=== PATIENT | female | born 1935 | race Caucasian/White ===

== ENCOUNTER 2021-05-15 19:54 | Emergency (ER) | payer OTHER ==
[~2021-05-15] VITALS: Ht 162.6 cm; Wt 57.1 kg
[~2021-05-15 19:54] MED LIST: ACTONEL30 MG; ASPIRIN EC81 M1; CLONIDINE0.1; LOSARTAN-HCTZ1 EACH; VITAMIN D400 UNI1; VITAMIN E200 UNI4; VITCB500GO
[2021-05-15] MEDS ORDERED: HYDROCODON-ACE1 EAC7 PO (20:55)
[2021-05-15 21:44] VITALS: BP 142/65
== END 2021-05-15 21:45 | disposition home or self-care (01) ==
LOC: M.ERS 19:54
DX: S32.028A Other fracture of second lumbar vertebra, initial encounter for closed fracture (principal); I10 Essential (primary) hypertension; Z79.899 Other long term (current) drug therapy; Z79.82 Long term (current) use of aspirin; W19.XXXA Unspecified fall, initial encounter; Y93.89 Activity, other specified; Y92.89 Other specified places as the place of occurrence of the external cause; Y99.8 Other external cause status

== ENCOUNTER → 2021-06-11 | Outpatient (CLI) | payer OTHER ==
[~2021-06-11] MED LIST changes: +HYDROCODON-ACE1 EAC7 PO
[2021-06-11 10:31] LABS: CREATININE 1.2 mg/dL (0.6-1.3)
== END ==
LOC: M.MRI 05-24 12:34 → M.LAB 09:50 → M.CT 11:00
PROVIDERS: ATTEND Nurse Practitioner
DX: S32.009D Unspecified fracture of unspecified lumbar vertebra, subsequent encounter for fracture with routine healing (principal); S32.020K Wedge compression fracture of second lumbar vertebra, subsequent encounter for fracture with nonunion; M54.5 Low back pain; N28.9 Disorder of kidney and ureter, unspecified; B35.1 Tinea unguium; M48.061 Spinal stenosis, lumbar region without neurogenic claudication; X58.XXXD Exposure to other specified factors, subsequent encounter; Z91.81 History of falling

== ENCOUNTER 2021-06-20 16:04 | Inpatient (IN) | payer OTHER ==
[~2021-06-20] VITALS: Ht 162.6 cm; Wt 58.1 kg
--- NOTE | ~2021-06-20 | CON ---
[address] [address] CONSULTATION Name: ALBERTINA HIGH Room: [address] IN M.R.#: [id number] Admission: 06/20/21 Attend Phys: Pao Mchugh Discharge: Date of : [birth year] Report #: [id number] THIS REPORT FOR: cc: Elena Herndon Linda J. DO Khosla,Blu Aguilar MD ~ DATE OF CONSULTATION: 06/21/2021 HISTORY OF PRESENT ILLNESS: This is an 86-year-old female patient who was evaluated by me for the possibility of stroke. The patient was admitted with acute onset of left sided weakness, which looked pretty significant and the patient already made complete recovery from that. She never had this kind of symptoms before. Symptoms came spontaneously without any trauma and then resolved spontaneously. It is not clear what her blood sugar and blood pressure were at that time. REVIEW OF SYSTEMS: Indicate that this patient had an aneurysm in the past. She had clips placed in. From the CT scan, it looks like this patient had clips on the left side and rest of the history she gave and looks like she had a pretty significant encephalomalacia on the left side. She underwent a CT angiogram yesterday, it looks like and a CT angiogram showed high-grade stenosis of the left carotid artery and there was a perfusion abnormality on the right side. She was told never to have an MRI with the clips she has in. A 14-point review of system was carried out and is positive for hypertension and osteopenia, otherwise it is fairly unremarkable. She is not complaining of any eye, ENT, cardiac, respiratory, GI, , musculoskeletal, constitutional, dermatological, hematological, psychiatric, throat, allergic symptom associated with present symptomatology except as described above. PAST MEDICAL HISTORY: Positive for aneurysm with significant encephalomalacia. FAMILY HISTORY: Negative for early age stroke. SOCIAL HISTORY: She drinks one beer every day. She does not smoke. PHYSICAL EXAMINATION: She is alert, responsive, oriented, able to follow simple and complex commands. Her memory looks like her baseline. Cranial nerve examinations appear unremarkable. Her strength, sensation, reflexes and tone are symmetrical. She has a good position sense on both sides. Reflexes are symmetrical. There is no cerebellar sign. There is no carotid bruit. Cardiorespiratory examinations appear unremarkable. Blood pressure is 139/59, respirations 17, pulse is 64, temperature is 97. Her pulses are somewhat difficult to feel, but she is a thin looking lady and her vision and hearing is adequate. There is no thyroid mass. There is no carotid [place] [id number] CONSULTATION Name: ALBERTINA HIGH Room: [address] IN M.R.#: [id number] Admission: 06/20/21 Attend Phys: Pao Mchugh Discharge: Date of : [birth year] Report #: [id number] difficulty noted. LABORATORY DATA: White count is 7.1. IMPRESSION: 1. Cerebrovascular accident versus TIA. We will not be able to distinguish one from another because we will not be able to do MRI in this patient. Symptom looks profound and the patient does have a perfusion abnormality on the right side. 2. Left carotid stenosis, which is asymptomatic. 3. GFR is low and the patient had a contrast yesterday. RECOMMENDATIONS: 1. Workup for the stroke. 2. Left carotid stenosis, need to be addressed as an outpatient. 3. GFR is low. I will suggest starting the fluids. I gave her a bolus and then started her on some fluid. 4. She is also anemic, we will the evaluation and management of that to yourself. Thank you very much for this referral. Please call me if there is any question. By: [id number] Mclaughlin MD /nt
[~2021-06-20 16:04] MED LIST changes: +CLONIDINE HCL0.1 MG; -CLONIDINE0.1
[2021-06-20 16:24] VITALS: BP 91/44
[2021-06-20 16:35] LABS: ABSOLUTE BASOPHILS 0.1 thou/uL (0.0-0.2); ABSOLUTE MONOCYTES 0.7 thou/uL (0.0-1.2); ABSOLUTE NEUTROPHILS 4.3 thou/uL (1.6-8.1); EOSINOPHILS 0.5 %; HEMATOCRIT 25.6 % (37.0-47.0); HEMOGLOBIN 8.7 gm/dL (12.0-15.0); LYMPHOCYTES 27.9 %; MCH 31.7 pg (26.0-34.0); MCV 93.1 fL (80.0-100.0); MONOCYTES 9.4 %; MPV 7.7 fl. (7.2-11.1); NUCLEATED RBCS 0 /100WBC; PLATELET COUNT* 212 thou/uL (150-400); POLYS 61.2 %; RBC 2.74 mil/uL (4.20-5.00); RDW-CV 15.4 % (10.5-14.5); WBC 7.1 thou/uL (4.0-11.0)
[2021-06-20 16:44] LABS: CALCIUM 8.8 mg/dL (8.5-10.1); CREATININE 1.3 mg/dL (0.6-1.3); POTASSIUM 3.7 mmol/L (3.5-5.1)
[2021-06-20 16:49] LABS: ALBUMIN 3.5 g/dL (3.4-5.0); TOTAL BILIRUBIN 0.3 mg/dL (<0.1-1.0); TOTAL PROTEIN 6.7 g/dL (6.4-8.2)
[2021-06-20 20:25] VITALS: BP 113/54
[2021-06-20 20:45] VITALS: BP 139/49
[2021-06-20] MEDS ORDERED: PRILOSEC OTC20 MG PO (21:49)
[2021-06-20] MEDS ORDERED: AMBIEN5 MG PO (21:49)
[2021-06-21 01:38] VITALS: BP 106/47
[2021-06-21 06:48] VITALS: BP 125/47
[2021-06-21 09:36] LABS: CHOLESTEROL 112 mg/dL (<200); HDL CHOLESTEROL 51 mg/dL (>40); LDL CHOLESTEROL 47 mg/dL (<100); TC:HDL 2.2 Ratio (Not establshd); TRIGLYCERIDE 71 mg/dL (<150); VLDL 14 mg/dL (<40)
[2021-06-21 09:38] LABS: SERUM ASSESSMENT Clear
--- NOTE | 2021-06-21 10:41 | EKG ---
[place] [address] ELECTROCARDIOGRAM REPORT Name: ANILAALBERTINA SAIMA Room: [address] ADM IN ..#: [id number] Admission: 06/20/21 Attend Phys: Oskar Augustin Discharge: Date of : [birth year] Date of Service: 06/20/21 1622 Report #: [id number] THIS REPORT FOR: //name// [facility] ED Test Date: 2021-06-20 Test Time: 16:22:09 Pat Name: ALBERTINA HIGH Department: Room: [facility] Gender: F [employer]orer [employer]: KARY : 1935 Requested By: Ananda Chicas Order Number: [id number] MD: Sid Sarkar Measurements Intervals [place] Rate: 65 P: 50 DE: 188 QRS: -28 QRSD: 74 T: 30 QT: 423 QTc: 440 Interpretive Statements Sinus rhythm artifact noted Anterior infarct, old No previous ECG available for comparison Electronically Signed On 06-21-2021 10:41:08 CDT by Sid Sarkar [email or web address] <ELECTRONICALLY SIGNED> By: Sid Sarkar MD, [facility] 06/21/21 1041 1622 1622 Sid Sarkar MD, [facility] /EPI
[2021-06-21 12:00] VITALS: BP 127/58
--- NOTE | 2021-06-21 15:43 | 2DMMODE ---
[place] [address] 2 D/M-MODE ECHOCARDIOGRAM Name: ALBERTINA HIGH Room: [address] IN Roxy.#: [id number] Admission: 06/20/21 Attend Phys: Oskar Augustin Discharge: Date of : [birth year] Date of Service: 06/21/21 1543 Report #: [id number] THIS REPORT FOR: cc: Elena Herndon,Elena Diaz,Sid Chapin MD [facility] ~ APPROVED REPORT Study performed: 06/21/2021 14:08:55 EXAM: Comprehensive 2D, Doppler, and color-flow Echocardiogram Patient Location: In-Patient Room #: 201 Status: routine BSA: 1.61 HR: 86 bpm BP: 125/47 mmHg Rhythm: NSR Other Information Study Quality: Good Indications CVA/TIA Echo Enhancing Agent Indication: Rule out Shunt Agent(s) / Amount(s) Used: Agitated Saline 10 cc 2D Dimensions IVSd: 11.69 (7-11mm) LVOT Diam: 18.90 (18-24mm) LVDd: 38.32 mm PWd: 8.90 (7-11mm) Ascending Ao: 30.55 (22-36mm) LVDs: 27.80 (25-40mm) Aortic Root: 29.35 mm Volumes Left Atrial Volume (Systole) LA ESV Index: 27.80 mL/m2 Aortic Valve AoV Peak Blake.: 1.55 m/s AO Peak Gr.: 9.64 mmHg LVOT Max P.02 mmHg AO Mean Gr.: 5.04 mmHg LVOT Mean P[place]90 [place] [address] 2 D/M-MODE ECHOCARDIOGRAM Name: ALBERTINA HIGH Room: [address] IN .R.#: [id number] Admission: 06/20/21 Attend Phys: Oskar Augustin Discharge: Date of : [birth year] Date of Service: 06/21/21 1543 Report #: [id number] LVOT Max V: 1.00 m/s AO V2 VTI: 33.72 cm LVOT Mean V: 0.63 m/s ANALILIA (VTI): 1.99 cm2 LVOT V1 VTI: 23.88 cm Mitral Valve E/A Ratio: 0.75 MV Decel. Time: 296.29 ms MV E Max Blake.: 0.96 m/s MV PHT: 85.92 ms MVA (PHT): 2.56 cm2 TDI E/Lateral E': 12.00 E/Medial E': 9.60 Medial E' Blake.: 0.10 m/s Lateral E' Blake.: 0.08 m/s Pulmonary Valve PV Peak Blake.: 0.86 m/s PV Peak Gr.: 2.93 mmHg Tricuspid Valve RAP Estimate: 5.00 mmHg TR Peak Gr.: 24.22 mmHg RVSP: 29.00 mmHg PA Pressure: 29.00 mmHg Left Ventricle The left ventricle is normal size. There is normal LV segmental wall motion. There is normal left ventricular wall thickness. Left ventricular systolic function is normal. The left ventricular ejection fraction is within the normal range. LVEF is 60-65%. Grade I - abnormal relaxation pattern. Right Ventricle The right ventricle is normal size. The right ventricular systolic function is normal. Atria The left atrium size is normal. The interatrial septum is intact with no evidence for an atrial septal defect. The right atrium size is normal. Aortic Valve Mild aortic valve sclerosis. No aortic regurgitation is present. There is no aortic valvular stenosis. Mitral Valve The mitral valve is normal in structure. [place] [address] 2 D/M-MODE ECHOCARDIOGRAM Name: ALBERTINA HIGH Room: [address] IN M.R.#: [id number] Admission: 06/20/21 Attend Phys: Oskar Augustin Discharge: Date of : [birth year] Date of Service: 06/21/21 1543 Report #: [id number] regurgitation noted. No evidence of mitral valve stenosis. Tricuspid Valve The tricuspid valve is normal in structure. Trace tricuspid regurgitation. No pulmonary hypertension. Pulmonic Valve Pulmonic valve is not well visualized. There is no pulmonic valvular regurgitation. Great Vessels The aortic root is normal in size. IVC is normal in size and collapses >50% with inspiration. Pericardium There is no pericardial effusion. <Conclusion> LVEF is 60-65%. Mild aortic valve sclerosis. The interatrial septum is intact with no evidence for an atrial septal defect. <ELECTRONICALLY SIGNED> By: Sid Sarkar MD, FACC 06/21/21 1543 1543 1543 Sid Sarkar MD, FACC /INF
[2021-06-21 16:00] VITALS: BP 139/59
[2021-06-21 20:00] VITALS: BP 121/57
[2021-06-22] VITALS: BP 135/62
[2021-06-22 02:06] LABS: GLYCOHEMOGLOBIN (HGB A1C) 5.6 % (4.8-5.6)
[2021-06-22 04:00] VITALS: BP 124/60
[2021-06-22 04:20] LABS: HEMATOCRIT 24.7 % (37.0-47.0); HEMOGLOBIN 8.4 gm/dL (12.0-15.0); MCH 31.5 pg (26.0-34.0); MCHC 33.9 g/dL (28.0-37.0); MCV 92.9 fL (80.0-100.0); RBC 2.66 mil/uL (4.20-5.00); RDW-CV 15.8 % (10.5-14.5); WBC 6.2 thou/uL (4.0-11.0)
[2021-06-22 04:35] LABS: CALCIUM 8.7 mg/dL (8.5-10.1); MAGNESIUM 1.9 mg/dL (1.8-2.4); POTASSIUM 3.8 mmol/L (3.5-5.1); TOTAL BILIRUBIN 0.3 mg/dL (<0.1-1.0)
[2021-06-22 08:00] VITALS: BP 114/51
[2021-06-22] MEDS ORDERED: ASPIRIN EC325 M1 PO (10:11)
[2021-06-22] MEDS ORDERED: CLOPIDOGREL75 MG PO (10:16)
[2021-06-22] MEDS ORDERED: LIPITOR 10 MG10 M1 PO (10:19)
[2021-06-22 11:53] VITALS: BP 130/60
== END 2021-06-22 13:45 | disposition home or self-care (01) | DRG 65 ==
LOC: M.ERS 16:04 → M.TBA-ER 18:05 → M.2W 18:05
PROVIDERS: Family Medicine; Internal Medicine; ADMIT Internal Medicine; ATTEND Internal Medicine
DX: I63.232 Cerebral infarction due to unspecified occlusion or stenosis of left carotid arteries (principal); G81.94 Hemiplegia, unspecified affecting left nondominant side; I74.9 Embolism and thrombosis of unspecified artery; I10 Essential (primary) hypertension; K21.9 Gastro-esophageal reflux disease without esophagitis; M19.90 Unspecified osteoarthritis, unspecified site; D64.9 Anemia, unspecified; Z20.822 Contact with and (suspected) exposure to COVID-19; M16.12 Unilateral primary osteoarthritis, left hip; M85.80 Other specified disorders of bone density and structure, unspecified site; Z79.82 Long term (current) use of aspirin; Z87.891 Personal history of nicotine dependence; Z79.899 Other long term (current) drug therapy